=== PATIENT | female | born 1990 | race Caucasian/White ===

== ENCOUNTER 2019-02-05 07:36 | Inpatient (IN) ==
[2019-02-05] MEDS ORDERED: OXYTOCIN 30 UNITS/500 ML BAG IV PRN (09:07)
--- NOTE | 2019-02-05 09:12 | Labor Progress Brief Note ---
Date of Service February 05, 2019 Met pt an spouse Reviewed PNC pt admitted for induction of labor t 40.6 weeks Bedside sono; VT FHR; CAT1 Ctx ; minimal VE; ft/505/post Discussed induction risk and benefits including expectant management pt agreeable to induction' Plan' Cytotec #1 pt Results & Data Vital Signs (Past 12 Hours) Vital Signs Temp Pulse Resp BP 02/05/19 07:54 36.8 C 20 02/05/19 07:51 80 136/74
[2019-02-05 09:36] LABS: Hematocrit (blood only) 35.4 % (37-47); Mean Corpuscular Hemoglobin 31.8 pg (25-34); Mean Corpuscular Volume 93.9 fL (80-100); Mean Platelet Volume 10.4 fL (7.4-10.4); Platelet Count 248 K/uL (130-400); RDW Coefficient of Variation 13.7 % (11.5-14.5); RDW Standard Deviation 46.6 fL (36.4-46.3); Red Blood Count 3.77 M/uL (4.2-5.4); White Blood Count 6.01 K/uL (4.8-10.8)
[2019-02-05 09:38] LABS: Mean Corpuscular Hgb Conc 33.9 g/dL (32-36)
[2019-02-05] MEDS: miSOPROStol 50 MCG TAB PO SCH ×2 (09:43→13:30)
[2019-02-05] MEDS ORDERED: DINOPROSTONE 10 MG INSERT PV ONE (19:15)
--- NOTE | 2019-02-05 20:24 | Labor Progress Brief Note ---
Date of Service February 05, 2019 Induction for post dates pt doing well'FHr CAT1 ctx 2-5mins Minimal ctx intensity VE; ft/50/post/-3 - Unchanged exam since AM we have discussed Cervidil placement for further cervical ripening 'pt has agreed Cervidil placed in vagina Results & Data Vital Signs (Past 12 Hours) Vital Signs Temp Pulse Resp BP 02/05/19 19:29 83 118/67 02/05/19 19:25 36.8 C 83 18 118/67 02/05/19 16:51 36.8 C 74 20 121/65 02/05/19 13:54 36.8 C 20 02/05/19 13:53 75 122/67 02/05/19 11:05 37.0 C 20 02/05/19 11:04 68 122/74
--- NOTE | 2019-02-06 01:10 | History and Physical Report ---
DATE OF ADMISSION: 02/05/2019 HISTORY OF PRESENT ILLNESS: The patient is a 29-year-old G1, P0, due date 01/30/2019 making her 40 weeks and 5 days on 02/05/2019, when she presented for induction of labor for prolonged gestation. On arrival at labor and delivery, she had no shortness of breath, no chills, no fever. heart rate was category 2. There was no rupture of membranes or bloody show. Bedside ultrasound shows cephalic presentation. The patient was admitted in anticipation for induction of labor. COURSE: Has been unremarkable. LABORATORIES: Blood type O negative, antibody negative. Patient received RhoGAM on 11/07/2018. GBS was negative. PAST MEDICAL HISTORY: None. PAST SURGICAL HISTORY: The patient has had dental surgery in the past. ALLERGIES: No known drug allergies. FAMILY HISTORY: Noncontributory. OBSTETRIC AND GYNECOLOGIC HISTORY: This is the patient's first . PHYSICAL EXAMINATION: GENERAL: Well-developed, well-nourished white female in no acute distress. HEART: S1, S2, regular rhythm and rate. LUNGS: Clear to auscultation bilaterally. ABDOMEN: Gravid. PELVIC: On admission, cervix was fingertip, 50% effaced, posterior, -3 station. Estimated weight by Boris's is 7 pounds. Bedside ultrasound shows cephalic presentation. EXTREMITIES: No cyanosis, clubbing, or edema. ASSESSMENT AND PLAN: A 29-year-old G1, P0 at 40 and 6 weeks, here for induction of labor for prolonged gestation. The patient is admitted. We will start induction process.
[2019-02-06] MEDS: LACTATED RINGER'S 1,000 ML IV PRN ×4 (03:40→22:33)
[2019-02-06] MEDS: miSOPROStol 50 MCG TAB PO SCH ×6 (07:35→22:18)
--- NOTE | 2019-02-06 09:45 | Obstetrical Progress Note ---
Date of Service February 06, 2019 Subjective I met with patient her She is know to me from office Uncomplicated and very excited to have this baby Reviewed her records GBS negative No medical problems Denies S/A/D use Denies STD's ( HSV/CHlam/ GC) VSS Afebrile FHR Categ I 2nd cervidil is out and having regular ctxs Painful / but denies pain management likes to ambulate Plans to have epidural later Discussed possible need for augmentation with pitocin or AROM Will continue to monitor All questions were answered Results & Data Vital Signs (Past 12 Hours) Vital Signs Temp Pulse Resp BP 02/06/19 07:07 36.7 C 18 02/06/19 07:05 78 123/85 02/06/19 03:11 36.5 C 80 18 104/52 L 02/05/19 23:22 36.8 C 78 18 118/78
--- NOTE | 2019-02-06 14:58 | Obstetrical Progress Note ---
Date of Service February 06, 2019 Subjective Patient is reevaluated She has been feeling ctxs, [place] panful while walking but not when she is in the bed Pain is 3-5/10 +FM's VSS Afebrile FHR categ I [place]: ctxs q 2-3 min VE: 4/ 60%/ -2, bulging tight bag, AROM'ed, abundant clear fluid noted She plans to get epidural for pain Continue to monitor closely Results & Data Vital Signs (Past 12 Hours) Vital Signs Temp Pulse Resp BP 02/06/19 14:42 37.0 C 78 20 133/71 02/06/19 10:57 36.9 C 20 02/06/19 10:56 75 122/59 L 02/06/19 07:07 36.7 C 18 02/06/19 07:05 78 123/85 02/06/19 03:11 36.5 C 80 18 104/52 L
[2019-02-06] MEDS ORDERED: OXYTOCIN 30 UNITS/500 ML BAG IV PRN (16:13)
[2019-02-06] MEDS ORDERED: fentaNYL citrate 100 MCG/2 ML VIAL ONE (17:54)
[2019-02-06] MEDS ORDERED: ePHEDrine sulfate 50 MG/ML AMP ONE (17:54)
--- NOTE | 2019-02-06 17:54 | Obstetrical Progress Note ---
Date of Service February 06, 2019 Subjective Patient is reevaluated FHR had decel after pitocin was increased to 4 miu/ and then stopped recovered with position change, IVF bolus and O2, decreased variability and decels ( variable by shape, early by location) VE; 5/ 70%/ -2, scalp stimulation : about 10 bpm increase in FHR Will continue to monitor closely Results & Data Vital Signs (Past 12 Hours) Vital Signs Temp Pulse Resp BP 02/06/19 17:23 87 120/79 02/06/19 16:44 37.1 C 91 H 20 121/73 02/06/19 14:42 37.0 C 78 20 133/71 02/06/19 10:57 36.9 C 20 02/06/19 10:56 75 122/59 L 02/06/19 07:07 36.7 C 18 02/06/19 07:05 78 123/85
[2019-02-06] MEDS ORDERED: fentaNYL 2MCG/ML ROPIV 1.25MG/ML 100 ML BAG EPI ONE (17:55)
[2019-02-06] MEDS ORDERED: BUPIVACAINE 0.25% 30 ML VIAL ONE (17:55)
[2019-02-06] MEDS ORDERED: fentaNYL 2MCG/ML ROPIV 1.25MG/ML 100 ML BAG EPI PRN (18:36)
[2019-02-06] MEDS ORDERED: NALBUPHINE HCL INJ 10 MG/ML AMP IV PRN (18:36)
[2019-02-06] MEDS ORDERED: DiphenhydrAMINE HCL 50 MG/ML VIAL IV PRN (18:36)
[2019-02-06] MEDS ORDERED: ePHEDrine sulfate 50 MG/ML AMP IV PRN (18:36)
[2019-02-06] MEDS ORDERED: NALOXONE HCL 1 MG in SODIUM CHLORIDE 0.9% 1000ML 1,000 ML IV PRN (18:36)
[2019-02-06] MEDS ORDERED: ONDANSETRON INJ 2 MG/ML 2 ML VIAL IV PRN (18:36)
[2019-02-06] MEDS ORDERED: NALOXONE HCL 0.4 MG/1 ML VIAL/CARP IV PRN (18:36)
--- NOTE | 2019-02-06 18:38 | Anesthesiology Consultation ---
Date of Service February 06, 2019 Assessment & Plan Chart Review Chart Review: Patient NOT seen in Pre Admission Testing and Acceptable Risk for Labor Epidural Consults Requested none ASA ASA2 Proposed Anesthesia Anesthesia Type: Labor Epidural and CSE Risk / Benefits Reviewed With: PT / POA / Parent / Guardian, Accepts Plan and Informed Consent Obtained History Height/Weight Height: 5 ft 4 in Weight: 77.111 kg Allergies Allergy/AdvReac Type Severity Reaction Status Date / Time No Known Allergies Allergy Verified 02/05/19 08:26 Medications Home Medications Medication Instructions Recorded Confirmed Last Taken vit no.[id number] 1 tab PO DAILY 02/05/19 02/05/19 02/05/19 06:30 [ Vitamin] Active Medications Generic Name Dose Route Start Last Admin Trade Name Freq PRN Reason Stop Dose Admin Lactated Ringer's 1,000 mls @ 125 mls/hr 02/05/19 09:07 02/06/19 18:22 Lr IV 02/07/19 09:06 999 mls/hr .Q8H PRN Administration L&D Protocol Protocol Oxytocin 30 units in 500 mls @ 0 mls/hr 02/06/19 16:13 02/06/19 17:30 Pitocin IV 02/08/19 16:12 0 units/hr .Q0M PRN 0 mls/hr Labor Induction/Augmentation Titration Protocol 0 UNITS/HR Misoprostol 50 mcg 02/05/19 09:30 02/06/19 18:32 Cytotec PO 03/07/19 09:29 Not Given Q4H KURT NPO Date Last Intake of Fluids: 02/06/19 Time Last Intake of Fluids: 16:30 Date Last Intake of Solids: 02/06/19 Time Last Intake of Solids: 09:00 Past Medical History Medical History H/O wisdom tooth extraction Exercise / Class Metabolic Activity II 4-5 Yardwork/Stairs/Walk up hill Past Anesthesia History No Hx of Anesthesia Complications and No Family Hx of Anesthesia Complications History of PONV No Hx of PONV and No Hx of Motion Sickness Social History Smoking Status: Never smoker Hx Alcohol Use: No Hx Substance Use: No Review of Systems no chest pain or sob Physical Exam Vital Signs Last Vital Signs Temp 37.1 C 02/06/19 16:44 Pulse 84 02/06/19 18:36 Resp 20 02/06/19 16:44 BP 120/79 02/06/19 17:23 Pulse Ox 100 02/06/19 18:36 ENMT Mouth: no TMJ abnormality Thyromental Distance: > or= 3.5 Finger Breadths Mallampati Class: II Neck normal visual inspection Respiratory normal respiratory effort Auscultation: lungs clear to auscultation bilaterally Cardiovascular Rate/Rhythm: regular rate and regular rhythm Musculoskeletal Spine: normal cervical ROM Neurologic moves all extremities Psychiatric Orientation: alert and oriented x 3 Testing Laboratory Results 02/05/19 09:21
--- NOTE | 2019-02-06 20:19 | Obstetrical Progress Note ---
Date of Service February 06, 2019 Subjective Patient is reevaluated She feels comfortable after epidural FHR was categ 1 after scalp stimulation stated to have mild early decel with ctxs ( to 90's with spontaneous recovery) VE: 5-6 cm/ 70%/ -3, head feels higher, ballotable, clear fluid leaking Scalp stimulation improved variability Ctxs q 4-5 min, pitocin was restarted at 2 miu/min Discussed the findings Patient with peanut ball on her side Will continue to monitor closely Results & Data Vital Signs (Past 12 Hours) Vital Signs Temp Pulse Resp BP Pulse Ox 02/06/19 20:11 66 100 02/06/19 20:06 81 98 02/06/19 20:05 71 105/51 L 02/06/19 20:01 75 99 02/06/19 19:56 76 98 02/06/19 19:52 77 116/54 L 02/06/19 19:51 80 98 02/06/19 19:46 81 98 02/06/19 19:41 75 98 02/06/19 19:36 77 98 02/06/19 19:35 75 18 111/58 L 02/06/19 19:31 74 98 02/06/19 19:26 76 99 02/06/19 19:21 87 100 02/06/19 19:20 74 18 125/68 02/06/19 19:18 75 123/64 02/06/19 19:16 79 124/69 98 02/06/19 19:14 82 124/71 02/06/19 19:12 86 130/76 02/06/19 19:11 89 99 02/06/19 19:10 37.1 C 95 H 18 122/71 02/06/19 19:08 89 125/75 02/06/19 19:06 90 123/69 100 02/06/19 19:04 90 119/65 02/06/19 19:02 74 116/65 02/06/19 19:01 86 99 02/06/19 19:00 70 125/72 02/06/19 18:58 84 125/66 02/06/19 18:56 87 113/78 100 02/06/19 18:51 90 100 02/06/19 18:46 98 H 100 02/06/19 18:41 105 H 100 02/06/19 18:36 84 100 02/06/19 17:23 87 120/79 02/06/19 16:44 37.1 C 91 H 20 121/73 02/06/19 14:42 37.0 C 78 20 133/71 02/06/19 10:57 36.9 C 20 02/06/19 10:56 75 122/59 L
--- NOTE | 2019-02-06 21:40 | Obstetrical Progress Note ---
Date of Service February 06, 2019 Subjective FHR had been categ II, decreased variability and decel with ctxs She stayed on knees for about 20 min, now on high fowlers Pitocin was stopped again and Nasal O2 and IVF bolus were started FHR improved Continue to monitor closely Results & Data Vital Signs (Past 12 Hours) Vital Signs Temp Pulse Resp BP Pulse Ox 02/06/19 21:31 75 99 02/06/19 21:26 78 99 02/06/19 21:21 85 100 02/06/19 21:20 77 115/81 02/06/19 21:16 90 99 02/06/19 21:13 18 02/06/19 21:11 84 98 02/06/19 21:06 86 139/60 99 02/06/19 21:01 108 H 100 02/06/19 20:56 91 H 96 02/06/19 20:51 98 H 98 02/06/19 20:50 92 H 119/63 02/06/19 20:46 99 H 99 02/06/19 20:41 98 H 100 02/06/19 20:36 77 97 02/06/19 20:35 72 113/59 L 02/06/19 20:31 71 98 02/06/19 20:26 83 97 02/06/19 20:22 71 122/57 L 02/06/19 20:21 80 97 02/06/19 20:16 80 99 02/06/19 20:11 66 100 02/06/19 20:06 81 98 02/06/19 20:05 71 105/51 L 02/06/19 20:01 75 99 02/06/19 19:56 76 98 02/06/19 19:52 77 116/54 L 02/06/19 19:51 80 98 02/06/19 19:46 81 98 02/06/19 19:41 75 98 02/06/19 19:36 77 98 02/06/19 19:35 75 18 111/58 L 02/06/19 19:31 74 98 02/06/19 19:26 76 99 02/06/19 19:21 87 100 02/06/19 19:20 74 18 125/68 02/06/19 19:18 75 123/64 02/06/19 19:16 79 124/69 98 02/06/19 19:14 82 124/71 02/06/19 19:12 86 130/76 02/06/19 19:11 89 99 02/06/19 19:10 37.1 C 95 H 18 122/71 02/06/19 19:08 89 125/75 02/06/19 19:06 90 123/69 100 02/06/19 19:04 90 119/65 02/06/19 19:02 74 116/65 02/06/19 19:01 86 99 02/06/19 19:00 70 125/72 02/06/19 18:58 84 125/66 02/06/19 18:56 87 113/78 100 02/06/19 18:51 90 100 02/06/19 18:46 98 H 100 02/06/19 18:41 105 H 100 02/06/19 18:36 84 100 02/06/19 17:23 87 120/79 02/06/19 16:44 37.1 C 91 H 20 121/73 02/06/19 14:42 37.0 C 78 20 133/71 02/06/19 10:57 36.9 C 20 02/06/19 10:56 75 122/59 L
--- NOTE | 2019-02-06 23:46 | Obstetrical Progress Note ---
Date of Service February 06, 2019 Subjective FHR had decel to 90's-100's VE; 10/100%/ +1, FHR up to 120-130's with god variability Continue to monitor closely Will start pushing Results & Data Vital Signs (Past 12 Hours) Vital Signs Temp Pulse Resp BP Pulse Ox 02/06/19 23:41 109 H 99 02/06/19 23:36 102 H 117/68 99 02/06/19 23:31 72 98 02/06/19 23:26 75 97 02/06/19 23:21 79 96/52 L 98 02/06/19 23:16 83 98 02/06/19 23:11 81 97 02/06/19 23:06 86 113/55 L 98 02/06/19 23:01 115 H 100 02/06/19 23:00 18 02/06/19 22:58 36.5 C 02/06/19 22:56 85 97 02/06/19 22:51 85 112/58 L 96 02/06/19 22:46 84 97 02/06/19 22:41 103 H 98 02/06/19 22:36 86 97 02/06/19 22:35 86 115/65 02/06/19 22:31 91 H 97 02/06/19 22:26 89 99 02/06/19 22:22 70 114/59 L 02/06/19 22:21 69 100 02/06/19 22:16 73 100 02/06/19 22:11 71 100 02/06/19 22:06 69 128/60 100 02/06/19 22:01 78 100 02/06/19 21:56 77 100 02/06/19 21:54 76 129/60 02/06/19 21:51 87 100 02/06/19 21:46 74 100 02/06/19 21:41 76 100 02/06/19 21:36 75 121/80 100 02/06/19 21:31 75 99 02/06/19 21:26 78 99 02/06/19 21:21 85 100 02/06/19 21:20 77 115/81 02/06/19 21:16 90 99 02/06/19 21:13 18 02/06/19 21:11 84 98 02/06/19 21:06 36.7 C 86 18 139/60 99 02/06/19 21:01 108 H 100 02/06/19 20:56 91 H 96 02/06/19 20:51 98 H 98 02/06/19 20:50 92 H 119/63 02/06/19 20:46 99 H 99 02/06/19 20:41 98 H 100 02/06/19 20:36 77 97 02/06/19 20:35 72 113/59 L 02/06/19 20:31 71 98 02/06/19 20:26 83 97 02/06/19 20:22 71 122/57 L 02/06/19 20:21 80 97 02/06/19 20:16 80 99 02/06/19 20:11 66 100 02/06/19 20:06 81 98 02/06/19 20:05 71 105/51 L 02/06/19 20:01 75 99 02/06/19 19:56 76 98 02/06/19 19:52 77 116/54 L 02/06/19 19:51 80 98 02/06/19 19:46 81 98 02/06/19 19:41 75 98 02/06/19 19:36 77 98 02/06/19 19:35 75 18 111/58 L 02/06/19 19:31 74 98 02/06/19 19:26 76 99 02/06/19 19:21 87 100 02/06/19 19:20 74 18 125/68 02/06/19 19:18 75 123/64 02/06/19 19:16 79 124/69 98 02/06/19 19:14 82 124/71 02/06/19 19:12 86 130/76 02/06/19 19:11 89 99 02/06/19 19:10 37.1 C 95 H 18 122/71 02/06/19 19:08 89 125/75 02/06/19 19:06 90 123/69 100 02/06/19 19:04 90 119/65 02/06/19 19:02 74 116/65 02/06/19 19:01 86 99 02/06/19 19:00 70 125/72 02/06/19 18:58 84 125/66 02/06/19 18:56 87 113/78 100 02/06/19 18:51 90 100 02/06/19 18:46 98 H 100 02/06/19 18:41 105 H 100 02/06/19 18:36 84 100 02/06/19 17:23 87 120/79 02/06/19 16:44 37.1 C 91 H 20 121/73 02/06/19 14:42 37.0 C 78 20 133/71
--- NOTE | 2019-02-07 01:33 | Obstetrical Progress Note ---
Date of Service February 07, 2019 Subjective Patient labor down and has been pushing for abut half an hour Head at +3 station, OA FHR between 100-30's, good variability Continue to push and monitor closely Anticipate Results & Data Vital Signs (Past 12 Hours) Vital Signs Temp Pulse Resp BP Pulse Ox 02/07/19 01:26 135 H 100 02/07/19 01:21 96 H 99 02/07/19 01:20 98 H 123/67 02/07/19 01:16 130 H 100 02/07/19 01:14 37.1 C 18 02/07/19 01:11 111 H 98 02/07/19 01:06 88 99 02/07/19 01:01 117 H 100 02/07/19 00:56 91 H 98 02/07/19 00:51 111 H 100 02/07/19 00:46 100 H 100 02/07/19 00:41 115 H 100 02/07/19 00:36 100 H 131/72 100 02/07/19 00:31 100 H 98 02/07/19 00:26 86 99 02/07/19 00:21 90 99 02/07/19 00:20 85 121/72 02/07/19 00:16 89 99 02/07/19 00:11 87 99 02/07/19 00:07 91 H 129/75 02/07/19 00:06 89 99 02/07/19 00:01 92 H 99 02/06/19 23:56 99 H 100 02/06/19 23:51 103 H 100 02/06/19 23:50 110 H 132/77 02/06/19 23:46 104 H 99 02/06/19 23:41 109 H 99 02/06/19 23:36 102 H 117/68 99 02/06/19 23:31 72 98 02/06/19 23:26 75 97 02/06/19 23:21 79 96/52 L 98 02/06/19 23:16 83 98 02/06/19 23:11 81 97 02/06/19 23:06 86 113/55 L 98 02/06/19 23:01 115 H 100 02/06/19 23:00 18 02/06/19 22:58 36.5 C 02/06/19 22:56 85 97 02/06/19 22:51 85 112/58 L 96 02/06/19 22:46 84 97 02/06/19 22:41 103 H 98 02/06/19 22:36 86 97 02/06/19 22:35 86 115/65 02/06/19 22:31 91 H 97 02/06/19 22:26 89 99 02/06/19 22:22 70 114/59 L 02/06/19 22:21 69 100 02/06/19 22:16 73 100 02/06/19 22:11 71 100 02/06/19 22:06 69 128/60 100 02/06/19 22:01 78 100 02/06/19 21:56 77 100 02/06/19 21:54 76 129/60 02/06/19 21:51 87 100 02/06/19 21:46 74 100 02/06/19 21:41 76 100 02/06/19 21:36 75 121/80 100 02/06/19 21:31 75 99 02/06/19 21:26 78 99 02/06/19 21:21 85 100 02/06/19 21:20 77 115/81 02/06/19 21:16 90 99 02/06/19 21:13 18 02/06/19 21:11 84 98 02/06/19 21:06 36.7 C 86 18 139/60 99 02/06/19 21:01 108 H 100 02/06/19 20:56 91 H 96 02/06/19 20:51 98 H 98 02/06/19 20:50 92 H 119/63 02/06/19 20:46 99 H 99 02/06/19 20:41 98 H 100 02/06/19 20:36 77 97 02/06/19 20:35 72 113/59 L 02/06/19 20:31 71 98 02/06/19 20:26 83 97 02/06/19 20:22 71 122/57 L 02/06/19 20:21 80 97 02/06/19 20:16 80 99 02/06/19 20:11 66 100 02/06/19 20:06 81 98 02/06/19 20:05 71 105/51 L 02/06/19 20:01 75 99 02/06/19 19:56 76 98 02/06/19 19:52 77 116/54 L 02/06/19 19:51 80 98 02/06/19 19:46 81 98 02/06/19 19:41 75 98 02/06/19 19:36 77 98 02/06/19 19:35 75 18 111/58 L 02/06/19 19:31 74 98 02/06/19 19:26 76 99 02/06/19 19:21 87 100 02/06/19 19:20 74 18 125/68 02/06/19 19:18 75 123/64 02/06/19 19:16 79 124/69 98 02/06/19 19:14 82 124/71 02/06/19 19:12 86 130/76 02/06/19 19:11 89 99 02/06/19 19:10 37.1 C 95 H 18 122/71 02/06/19 19:08 89 125/75 02/06/19 19:06 90 123/69 100 02/06/19 19:04 90 119/65 02/06/19 19:02 74 116/65 02/06/19 19:01 86 99 02/06/19 19:00 70 125/72 02/06/19 18:58 84 125/66 02/06/19 18:56 87 113/78 100 02/06/19 18:51 90 100 02/06/19 18:46 98 H 100 02/06/19 18:41 105 H 100 02/06/19 18:36 84 100 02/06/19 17:23 87 120/79 02/06/19 16:44 37.1 C 91 H 20 121/73 02/06/19 14:42 37.0 C 78 20 133/71
[2019-02-07] MEDS ORDERED: CEFAZOLIN 2000MG 2,000 MG/15 ML SYR IV STA (02:52)
--- NOTE | 2019-02-07 03:23 | Anesthesia Procedure Note ---
Date of Service February 07, 2019 Anesthesia Post Epidural Note Vital Signs Vital Signs: Temp Pulse Resp BP Pulse Ox 37.1 C 106 H 18 112/59 L 99 02/07/19 01:14 02/07/19 03:21 02/07/19 01:14 02/07/19 03:20 02/07/19 03:21 Pain Intensity Abdomen: Pain Intensity: 0 Notes Mental Status: alert / awake / arousable and participated in evaluation Nausea / Vomiting: adequately controlled Pain: adequately controlled Airway Patency, RR, SpO2: stable & adequate BP & HR: stable & adequate Hydration State: stable & adequate Neuraxial Anesthesia: was administered and sensory block is resolving Anesthetic Complications: no major complications apparent and Pt Satisfied with anesthetic care Epidural: Removed without complications and With tip intact
[2019-02-07] MEDS ORDERED: BISACODYL 10 MG SUPP PR PRN (03:27)
[2019-02-07] MEDS ORDERED: BENZOCAINE 20% AER SPR 82.5 GM CAN EXT PRN (03:27)
[2019-02-07] MEDS ORDERED: OXYTOCIN 30 UNITS/500 ML BAG IV PRN (03:27)
[2019-02-07] MEDS ORDERED: SUPERCREAM 0.870% 15 GM JAR EXT PRN (03:27)
[2019-02-07] MEDS ORDERED: HYDROCORTISONE ACETATE 25 MG SUPP PR PRN (03:27)
[2019-02-07] MEDS ORDERED: DIPHTHERIA/TETANUS/PERTUSSIS 0.5 ML SYR/VIAL IM ONE (03:27)
[2019-02-07] MEDS ORDERED: ACETAMINOPHEN 325 MG TAB PO PRN (03:27)
[2019-02-07] MEDS ORDERED: LACTATED RINGER'S 1,000 ML IV SCH (03:30)
--- NOTE | 2019-02-07 04:29 | Delivery Summary ---
DATE OF OPERATION: 02/07/2019 TIME OF DELIVERY OF BABY: 2:41 a.m. DETAILS OF DELIVERY: The patient was found to be fully dilated and desired to push. She pushed for about 2 hours and heart rate was having decelerations to 80s and head was over the perineum. After right mediolateral episiotomy was opened, head was delivered without difficulty. Shoulders were delivered with minimal traction. Baby was handed off to the mother where mouth and nose were suctioned. Cord was clamped x2 and cut at 1 minute delay. Cord blood was obtained. Vagina and perineum were checked for lacerations. There was a second-degree episiotomy and then a second-degree posterior vaginal laceration, it was confirmed to be second degree by rectal exam. Excellent sphincter tone was noted. Gloves were changed. Perineal body muscles around the sphincter were held with Allis clamps and those were repaired with ucaxyr-uy-inoce stitches x2 to reinforce the sphincter muscle and then the vaginal mucosa was repaired with 2-0 Vicryl in a running locked fashion and then bulbocavernous muscles, all the perineal body muscles were brought together with 2-0 Vicryl in a running locked fashion. Skin was closed in a subcuticular fashion. The placenta was found to be in the vagina, delivered spontaneous as intact and complete. Uterus was explored and found to be empty. Lower segment was cleared of all clots and debris. EBL was 300 mL. Fundus was firm and the rest of the vagina was checked. There was extension on the left posterior vaginal wall, which was repaired with 2-0 Vicryl in a running fashion. The vagina mucosa was edematous and irritated most likely from prior candidal infection. It was oozing as we put sutures for the repair and Margo powder was applied on the repair and 4 x 4 sponge for pressure and excellent hemostasis was achieved at this point. Rectal exam was repeated. No sutures were felt. Excellent sphincter tone was noted and no complications happened. Mom and baby tolerated the procedure well. Sponge, lap, needle count was correct x3. Baby was a viable male infant, Apgars 8/9. I was present during whole procedure. The sponge was removed 4 hours after the delivery and repair was hemostatic. I attest to the content of the Intraoperative Record and any orders documented therein. Any exceptions are noted below. MTDD
[2019-02-07] MEDS: DOCUSATE SODIUM 100 MG CAP PO SCH ×2 (08:51→20:59)
[2019-02-07] MEDS: FERROUS SULFATE 325 MG TAB PO SCH (08:51)
[2019-02-07] MEDS: PRENATAL VITAMIN 1 TAB PO SCH (08:51)
[2019-02-07] MEDS: IBUPROFEN 600 MG TAB PO PRN ×4 (08:51→21:38)
[2019-02-07] MEDS: OXYCODONE/ACETAMINOPHEN 5mg/325mg TAB PO PRN ×3 (08:54→17:37)
[2019-02-07] MEDS ORDERED: CEFAZOLIN 2000MG 2,000 MG/15 ML SYR IV SCH (14:00)
[2019-02-08 07:58] LABS: Hematocrit (blood only) 26.5 % (37-47); Hemoglobin 9.2 g/dL (12.0-16.0); Mean Corpuscular Hemoglobin 32.2 pg (25-34); Mean Corpuscular Hgb Conc 34.7 g/dL (32-36); Mean Corpuscular Volume 92.7 fL (80-100); Mean Platelet Volume 9.3 fL (7.4-10.4); Platelet Count 249 K/uL (130-400); RDW Coefficient of Variation 14.2 % (11.5-14.5); RDW Standard Deviation 47.6 fL (36.4-46.3); Red Blood Count 2.86 M/uL (4.2-5.4); White Blood Count 14.36 K/uL (4.8-10.8)
[2019-02-08] MEDS: FERROUS SULFATE 325 MG TAB PO SCH (08:45)
[2019-02-08] MEDS: DOCUSATE SODIUM 100 MG CAP PO SCH ×2 (08:45→20:57)
[2019-02-08] MEDS: IBUPROFEN 600 MG TAB PO PRN ×3 (08:45→20:57)
[2019-02-08] MEDS: PRENATAL VITAMIN 1 TAB PO SCH (08:45)
--- NOTE | 2019-02-08 10:21 | Obstetrical Progress Note ---
Date of Service February 08, 2019 Assessment & Plan (1) normal course: PPD #1 pt doing well 'anticipate disch tomorrow Subjective Ambulation: ambulating normally Voiding: no voiding problems Passing Gas:: Yes Diet Tolerance:: regular diet Lochia:: Small Feeding Type:: breast feeding Review of Systems All systems reviewed & are unremarkable except as noted in HPI & below Physical Exam Constitutional WD/WN, vitals as above well developed and well nourished Eyes PERRL, conjunctivae normal, anicteric sclerae Neck trachea midline, no thyromegaly Respiratory normal respiratory effort, lungs clear to auscultation Auscultation: no crackles, no rales and no wheezes Cardiovascular RRR, no murmur, no edema Gastrointestinal (Abdomen) normal bowel sounds, soft, nontender, no hepatosplenomegaly Uterus is below umbilicus Musculoskeletal no cyanosis or clubbing, extremities motor strength 5/5 Skin no rashes, warm and dry Neurologic patellar DTR's 2+ bilat, sensation intact Psychiatric A+Ox3, euthymic affect Genitourinary normal external appearance Results & Data Vital Signs (Past 12 Hours) Vital Signs Temp Pulse Resp BP Pulse Ox 02/08/19 07:20 36.7 C 84 16 103/67 99 02/07/19 23:00 36.6 C 97 H 18 122/78
[2019-02-08] MEDS ORDERED: BISACODYL 5 MG TABEC PO SCH (20:00)
[2019-02-09 06:31] LABS: Hematocrit (blood only) 26.8 % (37-47)
[2019-02-09] MEDS: IBUPROFEN 600 MG TAB PO PRN (08:26)
[2019-02-09] MEDS: DOCUSATE SODIUM 100 MG CAP PO SCH (08:27)
[2019-02-09] MEDS: PRENATAL VITAMIN 1 TAB PO SCH (08:27)
[2019-02-09] MEDS: FERROUS SULFATE 325 MG TAB PO SCH (08:27)
[2019-02-09 08:49] VITALS: BP 120/79; PULSE 86; TEMP 97.9; O2SAT 100
--- NOTE | 2019-02-09 09:35 | Obstetrical Progress Note ---
Date of Service February 09, 2019 Subjective Patient is seen and examined. She feels well, no complaints. Likes to be discharged Ambulating without dizziness Voiding without difficulty Tolerating regular diet with out N&V Bleeding is minimal No fever/ chills/ CP/ SOB/ N&V/ Leg pain Breast feeding without problems Vital Signs Temp Pulse Pulse Resp BP BP Pulse Ox 02/09/19 08:48 36.6 C 86 17 120/79 100 02/08/19 23:55 36.8 C 84 18 113/74 02/08/19 19:55 36.9 C 101 H 18 112/75 02/08/19 16:30 36.7 C 86 16 117/75 99 02/08/19 13:31 36.7 C 84 16 103/67 99 Lab Results 02/05/19 02/08/19 02/08/19 Range/Units 09:21 07:46 07:46 WBC 6.01 14.36 H (4.8-10.8) K/uL RBC 3.77 L 2.86 L (4.2-5.4) M/uL Hgb 12.0 9.2 L (12.0-16.0) g/dL Hct 35.4 L 26.5 L (37-47) % MCV 93.9 92.7 (80-100) fL MCH 31.8 32.2 (25-34) pg MCHC 33.9 34.7 (32-36) g/dL RDW Std Deviation 46.6 H 47.6 H (36.4-46.3) fL RDW Coeff of Lázaro 13.7 14.2 (11.5-14.5) % Plt Count 248 249 (130-400) K/uL MPV 10.4 9.3 (7.4-10.4) fL Blood Type O Negative Antibody Screen NEGATIVE Screen Cancelled Mother's Rh Status RH Neg Maternal Bleed 0 ML KB Cells Counted 0 /Adult RBC Ratio 0.00 02/09/19 Range/Units 06:07 WBC (4.8-10.8) K/uL RBC (4.2-5.4) M/uL Hgb 9.0 L (12.0-16.0) g/dL Hct 26.8 L (37-47) % MCV (80-100) fL MCH (25-34) pg MCHC (32-36) g/dL RDW Std Deviation (36.4-46.3) fL RDW Coeff of Lázaro (11.5-14.5) % Plt Count (130-400) K/uL MPV (7.4-10.4) fL Blood Type Antibody Screen Screen Mother's Rh Status Maternal Bleed ML KB Cells Counted /Adult RBC Ratio PE: General: Alert, orientedx3, NAD Abd: soft, NT, fundus firm, below Umbilicus Perineum intact, Lochia rubra minimal Ext; NT, no edema AP: 29 yo s/p , ppd# 2 VSS Afebrile doing well Continue routine care All questions were answered Discussed when to call D/C home , f/u in office Results & Data Vital Signs (Past 12 Hours) Vital Signs Temp Pulse Resp BP Pulse Ox 02/09/19 08:48 36.6 C 86 17 120/79 100 02/08/19 23:55 36.8 C 84 18 113/74
== END 2019-02-09 15:40 | disposition home or self-care (01) | DRG 807 ==
LOC: 4S1 07:36 → 4S2 02-07 05:49

== ENCOUNTER 2021-04-23 09:54 | Inpatient (IN) ==
[2021-04-23] MEDS ORDERED: OXYTOCIN 30 UNITS/500 ML BAG IV PRN (09:58)
[2021-04-23 10:19] LABS: Hematocrit (blood only) 37.8 % (37-47); Hemoglobin 12.8 g/dL (12.0-16.0); Mean Corpuscular Hemoglobin 31.9 pg (25-34); Mean Corpuscular Hgb Conc 33.9 g/dL (32-36); Mean Corpuscular Volume 94.3 fL (80-100); Mean Platelet Volume 10.4 fL (7.4-10.4); Platelet Count 272 K/uL (130-400); RDW Coefficient of Variation 13.3 % (11.5-14.5); Red Blood Count 4.01 M/uL (4.2-5.4); White Blood Count 7.33 K/uL (4.8-10.8)
--- NOTE | 2021-04-23 10:39 | History & Physical Report ---
Date of Service April 23, 2021 Assessment & Plan (1) : Plan: Cervidil for cervical ripening Admission and Anticipated Discharge Date Admission Date: April 23, 2021 History of Present Illness Chief Complaint: induction of labor for post-dates Primary Care Provider: Elena Romero 31 F P1001 at 40.6 weeks for induction of labor for post-dates. GBS is negative. Covid is pending. Allergies Allergy/AdvReac Type Severity Reaction Status Date / Time No Known Allergies Allergy Verified 02/05/19 08:26 Home Medications Medication Instructions Recorded Confirmed Type vits no.124-ferrous fum 1 tab PO DAILY 02/05/19 02/05/19 History 27 mg iron-folic acid 800 mcg tablet ( Vitamin) docusate sodium 100 mg capsule 100 mg PO DAILY@08,21 #60 cap 02/09/19 Rx ibuprofen 600 mg tablet 600 mg PO Q4H #30 tab 02/09/19 Rx vits no.124-ferrous fum 1 tab PO DAILY@08 #60 tab 02/09/19 Rx 27 mg iron-folic acid 800 mcg tablet ( Vitamin) Patient History Surgical History H/O wisdom tooth extraction Social History Smoking Status: Never smoker Hx Alcohol Use: No Hx Substance Use: No Preferred Language: [place] Citizen Communication Ability: Effective Beliefs That Will Affect Care: None marital status: Current Living Situation: Spouse Feels Safe at Home: Yes Assistive Devices: None OB History x1 induction for post-dates 3 days pushed 3 hours PATIENT SCHEDULING COORDINATOR History neg Physical Exam Constitutional: WD/WN, vitals as above comfortable Eyes: PERRL, conjunctivae normal, anicteric sclerae Respiratory: normal respiratory effort, lungs clear to auscultation Cardiovascular: RRR, no murmur, no edema Skin: no rashes, warm and dry Neurologic: patellar DTR's 2+ bilat, sensation intact Psychiatric: A+Ox3, euthymic affect Genitourinary: no vaginal lesions, no adnexal mass normal external appearance Manual OB Exam: + cervical dilation 1 cm, + cervical effacement 50 % and + station -2 OB Exam Monitor Tracing: + external FHT monitor used, + external uterine monitor used, + category I and + normal FHT variability cervix is unripe, posterior and firm Results & Data ([facility]) Vital Signs (Past 12 Hours) Vital Signs Temp Pulse BP 04/23/21 10:08 78 139/75 04/23/21 10:06 36.9 C Code Status & VTE Plan VTE Prophylaxis Plan VTE Prophylaxis will be ordered: No Monitoring External Monitor Cat 1 without any contractions
[2021-04-23] MEDS ORDERED: DINOPROSTONE 10 MG INSERT PV ONE (10:43)
--- NOTE | 2021-04-23 11:21 | Labor Progress Brief Note ---
Date of Service April 23, 2021 Assessment & Plan Admission and Anticipated Discharge Date Admission Date: April 23, 2021 Physical Exam Genitourinary: OB Exam Monitor Tracing: + external FHT monitor used, + external uterine monitor used, + category I and + normal FHT variability Cervidil placed vaginally Results & Data ([facility]) Vital Signs (Past 12 Hours) Vital Signs Temp Pulse BP 04/23/21 10:08 78 139/75 04/23/21 10:06 36.9 C
[2021-04-23] MEDS ORDERED: BUTORPHANOL TARTRATE 1 MG/ML VIAL IM PRN (16:21)
[2021-04-24] MEDS ORDERED: miSOPROStoL 50 MCG TAB PO ONE (01:03)
[2021-04-24] MEDS ORDERED: OXYTOCIN 30 UNITS/500 ML BAG IV PRN ×2 (08:27→15:37)
--- NOTE | 2021-04-24 08:27 | Obstetrical Progress Note ---
Date of Service April 24, 2021 Assessment & Plan Admission and Anticipated Discharge Date Admission Date: April 23, 2021 Subjective Patient is seen and examined She is known to me from last Received Cervidil and 1 dose of PO cyctoec for Cervical ripening Has been feeling ctxs q 2-3 min and not very painful yet. No LOF/VB +FM's Her has been uncomplicated except she had COVID in October and growth has been normal GBS neg VSS Afebrile FHR categ I VE; 3-4 cm/ 70%/ -2, bulging bag, offered AROM and accepted. AROM'ed abundant clear fluid was obtained. Continue to monitor closely Epidural as needed. Results & Data ([facility]) Vital Signs (Past 12 Hours) Vital Signs Temp Pulse Resp BP 04/24/21 07:07 36.7 C 71 16 132/84 04/24/21 03:39 36.8 C 75 16 121/71 04/24/21 00:05 36.7 C 81 16 130/67
[2021-04-24] MEDS ORDERED: fentaNYL 2MCG/ML ROPIVACAINE 1.25MG/ML 100 ML BAG EPI ONE (08:29)
[2021-04-24] MEDS ORDERED: ePHEDrine sulfate 50 MG/ML AMP ONE (08:29)
[2021-04-24] MEDS ORDERED: BUPIVACAINE 0.25% 30 ML VIAL ONE (08:29)
[2021-04-24] MEDS ORDERED: SODIUM CHLORIDE 0.9% INJ 10 ML VIAL ONE (08:29)
[2021-04-24] MEDS ORDERED: fentaNYL citrate 100 MCG/2 ML VIAL ONE (08:29)
[2021-04-24] MEDS: LACTATED RINGER'S 1,000 ML IV PRN ×2 (08:38→13:04)
[2021-04-24] MEDS ORDERED: ePHEDrine sulfate 50 MG/ML AMP IV PRN (09:00)
[2021-04-24] MEDS ORDERED: diphenhydrAMINE 50 MG/ML VIAL IV PRN (09:00)
[2021-04-24] MEDS ORDERED: NALOXONE HCL 0.4 MG/1 ML VIAL/CARP IV PRN (09:00)
[2021-04-24] MEDS ORDERED: fentaNYL 2MCG/ML ROPIVACAINE 1.25MG/ML 100 ML BAG EPI PRN (09:00)
[2021-04-24] MEDS ORDERED: NALBUPHINE HCL INJ 10 MG/ML AMP IV PRN (09:00)
[2021-04-24] MEDS ORDERED: NALOXONE HCL 1 MG in SODIUM CHLORIDE 0.9% 1000ML 1,000 ML IV PRN (09:00)
[2021-04-24] MEDS ORDERED: ONDANSETRON INJ 2 MG/ML 2 ML VIAL IV PRN (09:00)
--- NOTE | 2021-04-24 09:01 | Anesthesiology Consultation ---
Date of Service April 24, 2021 Assessment & Plan (1) Encounter for pre-operative examination: Chart Review Chart Review: Patient NOT seen in Pre Admission Testing and Acceptable Risk for Labor Epidural Consults Requested none History Height/Weight Height: 5 ft 4 in Weight: 83.5 kg Allergies Allergy/AdvReac Type Severity Reaction Status Date / Time No Known Allergies Allergy Verified 02/05/19 08:26 Medications Home Medications Medication Instructions Recorded Confirmed Last Taken docusate sodium 100 mg capsule 100 mg PO DAILY@08,21 #60 cap 02/09/19 04/23/21 Unknown ibuprofen 600 mg tablet 600 mg PO Q4H #30 tab 02/09/19 04/23/21 Unknown vits no.124-ferrous fum 1 tab PO DAILY@08 #60 tab 02/09/19 04/23/21 07:30 27 mg iron-folic acid 800 mcg tablet ( Vitamin) Active Medications Generic Name Dose Route Start Last Admin Trade Name Freq PRN Reason Stop Dose Admin Lactated Ringer's 1,000 mls @ 125 mls/hr 04/23/21 09:58 04/24/21 09:08 Lr IV 04/25/21 09:57 125 mls/hr .Q8H PRN Infusion L&D Protocol Protocol Past Medical History Medical History (Updated 04/24/21 @ 09:01 by Mike Sommer MD) Exercise / Class Metabolic Activity II 4-5 Yardwork/Stairs/Walk up hill Past Family History Family History Grandfather (Maternal) Diabetes mellitus, type 2 Grandmother (Paternal) Stroke Other Hypertension Past Surgical History Surgical History H/O wisdom tooth extraction Past Anesthesia History No Hx of Anesthesia Complications and No Family Hx of Anesthesia Complications History of PONV No Hx of PONV and No Hx of Motion Sickness Social History Smoking Status: Never smoker Hx Alcohol Use: No Hx Substance Use: No Physical Exam Vital Signs Last Vital Signs Temp 36.9 C 04/24/21 09:03 Pulse 78 04/24/21 09:21 Resp 16 04/24/21 09:03 BP 130/75 04/24/21 09:21 Pulse Ox 99 04/24/21 09:21 Testing Laboratory Results 04/23/21 10:05
--- NOTE | 2021-04-24 14:28 | Obstetrical Progress Note ---
Date of Service April 24, 2021 Assessment & Plan Admission and Anticipated Discharge Date Admission Date: April 23, 2021 Subjective Patient is reevaluated. She got painful after AROM and received epidural for pain, comfortable now. Her cervix was checked about half an hour ago by her nurse and it was 7-8 cm dilated. heart rate category 1. She feels pressure now. I checked her and she is fully dilated and head at +1 station. We will empty bladder and then start pushing. Results & Data ([facility]) Vital Signs (Past 12 Hours) Vital Signs Temp Pulse Resp BP Pulse Ox 04/24/21 14:26 91 H 04/24/21 14:21 90 99 04/24/21 14:17 81 123/57 L 04/24/21 14:16 87 99 04/24/21 14:11 99 H 98 04/24/21 14:06 79 98 04/24/21 14:02 93 H 125/69 04/24/21 14:01 80 98 04/24/21 14:00 18 04/24/21 13:56 81 97 04/24/21 13:51 88 98 04/24/21 13:49 73 125/66 04/24/21 13:46 81 99 04/24/21 13:45 18 04/24/21 13:41 97 H 99 04/24/21 13:36 83 99 04/24/21 13:33 82 125/69 04/24/21 13:31 79 99 04/24/21 13:30 18 04/24/21 13:26 82 99 04/24/21 13:21 86 99 04/24/21 13:17 81 116/64 04/24/21 13:16 77 99 04/24/21 13:15 18 04/24/21 13:11 76 99 04/24/21 13:06 75 99 04/24/21 13:03 73 124/70 04/24/21 13:01 36.6 C 76 18 99 04/24/21 12:56 67 98 04/24/21 12:51 94 H 98 04/24/21 12:48 74 126/71 04/24/21 12:46 77 99 04/24/21 12:45 18 04/24/21 12:41 76 99 04/24/21 12:36 87 98 04/24/21 12:33 67 121/67 04/24/21 12:31 89 98 04/24/21 12:30 18 04/24/21 12:26 69 98 04/24/21 12:21 66 98 04/24/21 12:18 75 121/78 04/24/21 12:16 84 99 04/24/21 12:15 18 04/24/21 12:11 84 99 04/24/21 12:06 69 98 04/24/21 12:02 78 119/69 04/24/21 12:01 72 98 04/24/21 12:00 18 04/24/21 11:56 68 97 04/24/21 11:51 68 97 04/24/21 11:47 68 117/66 94 04/24/21 11:46 65 98 04/24/21 11:45 18 04/24/21 11:41 70 98 04/24/21 11:36 68 98 04/24/21 11:32 84 119/66 04/24/21 11:31 71 98 04/24/21 11:30 18 04/24/21 11:26 67 98 04/24/21 11:21 77 98 04/24/21 11:18 72 120/73 04/24/21 11:16 84 98 04/24/21 11:15 18 04/24/21 11:11 69 98 04/24/21 11:06 71 98 04/24/21 11:03 68 114/64 04/24/21 11:01 65 96 04/24/21 11:00 36.7 C 18 04/24/21 10:56 63 97 04/24/21 10:51 71 97 04/24/21 10:48 64 117/60 04/24/21 10:47 66 93 04/24/21 10:46 71 97 04/24/21 10:45 18 04/24/21 10:41 67 97 04/24/21 10:36 71 97 04/24/21 10:32 85 128/59 L 04/24/21 10:31 82 98 04/24/21 10:30 18 04/24/21 10:26 67 98 04/24/21 10:21 84 98 04/24/21 10:19 65 122/67 94 04/24/21 10:16 65 98 04/24/21 10:15 18 04/24/21 10:11 71 98 04/24/21 10:06 78 98 04/24/21 10:04 76 132/75 04/24/21 10:02 79 91 04/24/21 10:01 82 98 04/24/21 10:00 18 04/24/21 09:56 75 98 04/24/21 09:51 77 98 04/24/21 09:46 77 98 04/24/21 09:45 77 18 132/63 04/24/21 09:43 81 135/67 04/24/21 09:41 77 129/62 98 04/24/21 09:39 72 128/65 04/24/21 09:37 71 129/59 L 04/24/21 09:36 74 98 04/24/21 09:35 67 129/62 04/24/21 09:33 75 126/66 04/24/21 09:31 69 128/64 98 04/24/21 09:30 76 18 127/68 04/24/21 09:27 81 135/83 04/24/21 09:26 72 97 04/24/21 09:25 72 129/70 04/24/21 09:23 69 126/79 04/24/21 09:21 78 130/75 99 04/24/21 09:16 75 98 04/24/21 09:15 18 04/24/21 09:11 73 99 04/24/21 09:06 72 99 04/24/21 09:03 36.9 C 16 04/24/21 09:01 71 99 04/24/21 09:00 18 04/24/21 07:07 36.7 C 71 16 132/84 04/24/21 03:39 36.8 C 75 16 121/71
[2021-04-24] MEDS ORDERED: MINERAL OIL 30 ML UDC ONE (14:58)
[2021-04-24] MEDS ORDERED: miSOPROStoL 200 MCG TAB ONE (15:28)
[2021-04-24] MEDS ORDERED: SUPERCREAM 0.870% 15 GM JAR EXT PRN (15:37)
[2021-04-24] MEDS ORDERED: oxyCODONE/ACETAMINOPHEN 5mg/325mg TAB PO PRN (15:37)
[2021-04-24] MEDS ORDERED: HYDROCORTISONE ACETATE 25 MG SUPP PR PRN (15:37)
[2021-04-24] MEDS ORDERED: ACETAMINOPHEN 325 MG TAB PO PRN (15:37)
[2021-04-24] MEDS ORDERED: MEASLES, MUMPS & RUBELLA VIRUS VIAL SQ ONE (15:37)
[2021-04-24] MEDS ORDERED: miSOPROStoL 200 MCG TAB PR ONE (15:37)
[2021-04-24] MEDS ORDERED: BENZOCAINE 20% AER SPR 82.5 GM CAN EXT PRN (15:37)
[2021-04-24] MEDS ORDERED: DIPHTHERIA/TETANUS/PERTUSSIS 0.5 ML SYR/VIAL IM ONE (15:37)
[2021-04-24] MEDS ORDERED: CALCIUM CARBONATE 500 MG CHEWABLE TAB PO PRN (15:46)
--- NOTE | 2021-04-24 15:46 | Delivery Summary ---
Vaginal Delivery Summary Date of Service April 24, 2021 Vaginal Delivery Summary The patient was found to be fully dilated and desired to push. She pushed about 5 minutes and there was a scarred tight tissue in the posterior vagina from prior repair. It has ruptured when the head was . Then the head was delivered without difficulty, and then shoulders were delivered with minimal traction, baby was handed off to the mother that her mouth and nose were suctioned and cord was clamped x2 and cut at 1 minute delay. Cord blood was obtained. And then vagina and perineum were checked for lacerations, there was a second- degree perineal laceration from the old scar it was extending into the perianal skin. Rectal exam was done and confirmed intact sphincter tone. But perineal body muscles close to external anal sphincter were held with Allis clamps and brought together to support sphincter. It was repaired with 2-0 Vicryl with figure of eight stitches and U-type sutures about four times. Then the rectal exam was repeated and better sphincter tone was noted and no sutures were felt. Gloves were changed and the vaginal mucosa was repaired with another sterile 2-0 Vicryl in a running locked fashion bringing the bulbocavernosus muscle together and perineal body muscles together and skin in a subcuticular fashion. Excellent hemostasis achieved. Then the placenta was found to be in the vagina and delivered spontaneously as intact and complete. Uterus was explored and found to be empty, lower segment was cleared of all clots and debris's, EBL was 300 mL. 800 mcg of Cytotec tablets were placed in the rectum to help with IV oxytocin. Then the fundus was firm and lochia was minimal. Mom and baby tolerated procedure well. Sponge lap needle count was correct x3. It was a viable male infant, Apgars 8/9 and weight is pending. No complications happened and I was present during the whole procedure.
--- NOTE | 2021-04-24 18:09 | Anesthesia Procedure Note ---
Date of Service April 24, 2021 Anesthesia Post Epidural Note Vital Signs Vital Signs: Temp Pulse Resp BP Pulse Ox 36.8 C 91 H 20 127/76 98 04/24/21 15:47 04/24/21 17:42 04/24/21 17:17 04/24/21 17:42 04/24/21 15:36 Notes Mental Status: alert / awake / arousable and participated in evaluation Patient Amnestic to Procedure: No Nausea / Vomiting: adequately controlled Pain: adequately controlled Airway Patency, RR, SpO2: stable & adequate BP & HR: stable & adequate Hydration State: stable & adequate Neuraxial Anesthesia: was administered and sensory block is resolving Anesthetic Complications: no major complications apparent and Pt Satisfied with anesthetic care Epidural: Removed without complications and With tip intact
[2021-04-24] MEDS: IBUPROFEN 600 MG TAB PO PRN ×2 (19:05→23:23)
[2021-04-24] MEDS: DOCUSATE SODIUM 100 MG CAP PO SCH (21:30)
[2021-04-25] MEDS: IBUPROFEN 600 MG TAB PO PRN ×3 (03:36→13:31)
[2021-04-25 06:53] LABS: Hematocrit (blood only) 34.9 % (37-47); Hemoglobin 11.8 g/dL (12.0-16.0); Mean Corpuscular Hemoglobin 32.1 pg (25-34); Mean Corpuscular Hgb Conc 33.8 g/dL (32-36); Mean Corpuscular Volume 94.8 fL (80-100); Mean Platelet Volume 10.5 fL (7.4-10.4); Platelet Count 237 K/uL (130-400); RDW Coefficient of Variation 13.5 % (11.5-14.5); RDW Standard Deviation 46.9 fL (36.4-46.3); Red Blood Count 3.68 M/uL (4.2-5.4); White Blood Count 10.86 K/uL (4.8-10.8)
[2021-04-25] MEDS ORDERED: FERROUS SULFATE 325 MG TAB PO SCH (08:00)
[2021-04-25] MEDS ORDERED: PRENATAL VITAMIN 1 TAB PO SCH (08:00)
[2021-04-25] MEDS: DOCUSATE SODIUM 100 MG CAP PO SCH (08:06)
--- NOTE | 2021-04-25 09:50 | Obstetrical Progress Note ---
Date of Service April 25, 2021 Subjective Ambulation: ambulating normally Voiding: no voiding problems Passing Gas:: Yes Diet Tolerance:: regular diet Lochia:: Small Feeding Type:: breast feeding Current Pain Level(1-10): 0 doing well plans for d/c today Physical Exam Constitutional WD/WN, vitals as above comfortable abdomen soft and non-tender fundus firm no edema neg Anahi's for d/c today Results & Data ([facility]) Vital Signs (Past 12 Hours) Vital Signs Temp Pulse Resp BP Pulse Ox 04/25/21 07:57 36.8 C 69 20 109/75 97 04/25/21 03:30 36.7 C 74 16 116/75 97 04/24/21 23:10 37.2 C 92 H 18 115/68 97
[2021-04-25] MEDS ORDERED: bisacodyL 5 MG TABEC PO SCH (20:00)
[2021-04-26] MEDS ORDERED: bisacodyL 10 MG SUPP PR PRN
== END 2021-04-25 18:45 | disposition home or self-care (01) | DRG 768 ==
LOC: 4S1 09:54 → 4N 20:46 → 4S1 23:58 → 4S2 04-24 20:51